=== PATIENT | female | born 1965 | race Caucasian/White ===

== ENCOUNTER 2019-08-18 09:01 | Observation (INO) | payer MEDICAID, SELFPAY ==
[2019-08-18] VITALS (12 sets, daily range): BP systolic 154–194; BP diastolic 81–99; PULSE 62–81; RESP 16–21; TEMP 36.4–37.4; O2SAT 100; BMI 27.5
--- NOTE | ~2019-08-18 | US_ITS ---
EXAMINATION: US carotid duplex BI DATE: 08/18/2019 17:24 INDICATION: Left hemiparesis. TECHNIQUE: Grayscale, color Doppler, and pulsed Doppler images of the cervical carotid arteries were obtained. The degree of vessel stenosis is placed in one of the following categories: normal, <50%, 5 0-69%, >=70% but less than near-occlusion, near-occlusion, or total occlusion. Note that percent sten osis relative to normal distal artery lumen diameter is indirectly measured from velocity measurement s as described by Ivan, et al. Radiology 2003; 229:340-346. COMPARISON: None. FINDINGS: RIGHT: The right common carotid artery (CCA) peak systolic velocity (PSV) is 78 cm/s. The right internal car otid artery (ICA) PSV is 67 cm/s. The right ICA end-diastolic velocity (EDV) is 27 cm/s. The right IC A/CCA PSV ratio is 0.9. Grayscale and color Doppler images yield an estimate of <50% diameter reducti on from plaque in the ICA. There is antegrade flow in the right vertebral artery. LEFT: The left CCA PSV is 91 cm/s. The left ICA PSV is 67 cm/s. The left ICA EDV is 14 cm/s. The left ICA/C CA PSV ratio is 0.7. Grayscale and color Doppler images yield an estimate of <50% diameter reduction from plaque in the ICA. There is antegrade flow in the left vertebral artery. IMPRESSION: 1. <50% stenosis in the right internal carotid artery. 2. <50% stenosis in the left internal carotid artery. Reviewed, dictated and finalized at location A.
--- NOTE | ~2019-08-18 | MR_ITS ---
EXAMINATION: MR brain/brain stem wo/w con DATE: 08/19/2019 10:43 INDICATION: Left-sided numbness and tingling. TECHNIQUE: Magnetic resonance imaging (MRI) of the brain and brainstem was performed without and with 15 mL MultiHance intravenous contrast. Sequences included sagittal and axial T1-weighted FSE, axial diffusion-weighted FS EPI, axial T2*-weighted GRE, axial T2-weighted FLAIR Propeller, and axial T2-we ighted Propeller. Postcontrast sequences included axial and coronal T1-weighted FSE. Apparent diffusi on coefficient (ADC) maps were created. COMPARISON: Head CT 08/18/2019 FINDINGS: There are scattered areas of nonspecific increased T2-weighted signal intensity in the cere bral white matter, which is within normal limits for the patient's age. There is no intracranial hemo rrhage, acute infarction, or abnormal intracranial mass lesion. The ventricles are normal in size. Th ere is mucosal thickening in the paranasal sinuses. The mastoid air cells are normal. The orbits are normal. IMPRESSION: 1. Normal aging brain. Reviewed, dictated and finalized at location A. IMPRESSION: 1. Normal aging brain.
--- NOTE | ~2019-08-18 | XR_ITS ---
XR chest 1V portable 08/18/2019 10:30 Indication: Suspected CVA. Left-sided numbness. Procedure: AP portable chest Comparison: 05/21/2006 Findings: Heart size normal. There is dextroscoliosis. No focal air space disease, pulmonary edema, p leural effusion or suspected pneumothorax. No acute osseous abnormality. Impression: 1: No acute cardiopulmonary disease. Reviewed, dictated and finalized at location A. Impression: 1: No acute cardiopulmonary disease.
--- NOTE | ~2019-08-18 | CT_ITS ---
EXAMINATION: CT brain wo con DATE: 08/18/2019 09:12 INDICATION: Left-sided tingling. TECHNIQUE: Computed tomography (CT) of the head was performed without intravenous contrast. The mA wa s adjusted according to patient size. Iterative reconstruction technique was employed. The dose-lengt h product was 605.33 mGy-cm. COMPARISON: None FINDINGS: There is no intracranial hemorrhage, acute infarction, or abnormal intracranial mass lesion . The ventricles are normal in size. There is mild mucosal thickening in the ethmoid sinuses. The mas toid air cells are normal. The orbits are normal. IMPRESSION: 1. Normal brain. I called this result to Dr. Palmer on 08/18/19 at 9:14 AM. Reviewed, dictated and finalized at location A.
--- NOTE | 2019-08-18 09:03 | ECG_ITS ---
Measurements Intervals [place] Rate: 72 P: 55 MN: 189 QRS: 18 QRSD: 95 T: 37 QT: 391 QTc: 430 Interpretive Statements SINUS RHYTHM EARLY PRECORDIAL R/S TRANSITION BASELINE ARTIFACT- I, II, III, AVR, AVL, AVF, V1-V6 BORDERLINE ECG Electronically Signed On 08-18-2019 9:28:11 CDT by Sal Carrillo D.O.
--- NOTE | 2019-08-18 09:04 | ED.NEUROSD ---
HPI - Neuro Symptoms/Deficit General Chief Complaint: Suspected CVA Stated Complaint: Tingling on L side Time Seen by Provider: 08/18/19 09:03 Source: patient Mode of arrival: ambulatory Limitations: no limitations History of Present Illness HPI Narrative: Pt is a 54 y/o female who presents to the ED with c/o lt hand and foot numbness/tingling that started this morning at 0730. Pt states that she was not able to sleep all night and she was awake when the Sx started. She notes that she got up to go to the bathroom and her gait was not steady. She states that she felt like her lt foot was going to give out and when she touched her lt foot it did not feel like it was her foot. Pt's numbness has subsided but she still has tingling to her lt hand and lt foot. She denies having a fever, or N/V. She got a liver transplant in 2016 and is in rejection. She gets her transplant care at [facility]. Onset (ago): hour(s) (1.5) Time: 07:30 Location: other (lt hand and lt foot) Quality: numb and tingling Relieving factors: time Context: sudden onset Associated symptoms: other (unsteady gait) Related Data Home Medications Medication Instructions Recorded Confirmed aspirin [Adult Low Dose Aspirin] 81 mg PO DAILY 08/18/19 08/18/19 lisinopril 10 mg PO DAILY 08/18/19 08/18/19 mycophenolate sodium 720 mg PO BID 08/18/19 08/18/19 prednisone 40 mg PO DAILY 08/18/19 08/18/19 sennosides [Senna Laxative] 8.6 mg PO HS 08/18/19 08/18/19 tacrolimus 2 mg PO BID 08/18/19 08/18/19 ursodiol 300 mg PO TID 08/18/19 08/18/19 Allergies Allergy/AdvReac Type Severity Reaction Status Date / Time latex Allergy Unknown Rash Verified 08/18/19 09:24 Penicillins Allergy Unknown Rash Verified 08/18/19 09:24 Review of Systems Review of Systems: All systems reviewed & are unremarkable except as noted in HPI and below Constitutional: Constitutional: Denies fever(s) Gastrointestinal: Gastrointestinal: Denies nausea and Denies vomiting Neurologic: Reports abnormal gait, Reports numbness (lt hand and lt foot) and Reports tingling (lt hand and lt foot) [facility] Past Medical History Medical History (Updated 08/18/19 @ 11:58 by Kurt Palmer DO) Anemia Anxiety DDD (degenerative disc disease) Fibroids GERD (gastroesophageal reflux disease) Liver transplant rejection Primary biliary cirrhosis Surgical History Surgical History (Updated 08/18/19 @ 09:35 by Lenny Walker) History of gastric bypass Hx of cholecystectomy Family History Family History (Updated 09/15/16 @ 23:56 by DOCTOR UNKNOWN) Sibling Patient's sister is in good health Mother Family history of elevated blood lipids Family history of diabetes mellitus in first degree relative Hypertension Father Family history of lung cancer, Onset Age: 54 Patient's father is Social History Social History Smoking status: Never smoker Second hand tobacco smoke exposure: No Alcohol intake: never Exam Narrative: Exam Narrative: APPEARANCE: No acute distress, nontoxic, resting in bed HEENT: Normocephalic, atraumatic, OMM, TMs clear bilaterally EYES: PERRL, EOMI NECK: Supple, nontender, full range of motion without pain, no meningismus RESPIRATORY: No respiratory distress, clear to auscultation bilaterally with no rhonchi wheezing or rales CARDIOVASCULAR: RRR s murmur ABDOMINAL: Soft, nontender, nondistended MUSCULOSKELETAL: Moves all extremities. No clubbing, cyanosis or edema. NEURO: A and O ?3, following commands, speech normal, cranial nerves II through XII grossly intact,muscle strength 5 out of 5 bilateral upper and lower extremities no pronator drift, pinprick sensation equal in the bilateral upper and lower extremities SKIN:: Warm, dry. Normal Color PSYCHIATRIC: Normal affect/mood Course Course Emergency Course: Patient reevaluated several times. States symptoms continuing to improve until ultimately symp
[2019-08-18 09:25] LABS: Basophils Percent Auto 0.6 % (0.2-1.2); Eosinophils Absolute Auto 0.1 K/mm3 (0-0.3); Eosinophils Percent Auto 1.2 % (0-4.4); Hematocrit 35.6 % (37.0-47.0); Hemoglobin 10.7 g/dL (12.0-15.0); Immature Granulocyte Absolute 0.02 K/mm3 (0.00-0.031); Immature Granulocyte Percent A 0.4 % (0-0.5); Immature Platelet Fraction Pct 8.2 % (0.9-11.2); Lymphocytes Absolute Auto 1.79 K/mm3 (0.9-3.2); Lymphocytes Percent Auto 34.7 % (18.3-44.2); Mean Corpuscular HGB Conc 30.1 g/dl (32-36); Mean Corpuscular Hemoglobin 20.6 pg (26-34); Mean Corpuscular Volume 68.5 fl (80-100); Monocytes Absolute Auto 0.5 K/mm3 (0.1-0.6); Monocytes Percent Auto 9.7 % (2.6-8.5); Neutrophils Absolute Auto 2.8 K/mm3 (1.3-6.7); Neutrophils Percent Auto 53.4 % (45.5-73.1); Platelet Count Result 175 k/mm3 (150-375); Red Cell Distribution Width 16.1 % (11.5-14.5); White Blood Count 5.2 K/mm3 (4.5-10.0)
[2019-08-18 09:32] LABS: INR 0.9
[2019-08-18 09:33] LABS: Partial Thromboplastin Time 28.4 SECONDS (22.3-36.8)
[2019-08-18 09:36] LABS: Blood Urea Nitrogen 10 mg/dL (7-17); Calcium 9.2 mg/dL (8.4-10.2); Carbon Dioxide 26 mmol/L (22-30); Chloride 104 mmol/L (98-107); Estimated CRCL calculation 20 ml/min; Estimated Glomerular Filt Rate > 60; Glucose 86 mg/dL (65-105); Potassium 3.6 mmol/L (3.4-5.0); Sodium 140 mmol/L (137-145)
[2019-08-18 09:48] LABS: Troponin I < 0.012 ng/mL (0.000-0.034)
[2019-08-18 10:34] LABS: Add Urine Microscopic? YES; Appearance Urine Clear (Clear); Bacteria Urine Trace /hpf; Bilirubin Urine Negative (Negative); Blood Urine Negative (Negative); Color Urine Yellow (Yellow); Glucose Urine UA Negative (Negative); Ketones Urine Negative (Negative); Leukocyte Esterase Ur 2+ LEU/UL (Negative); Mucus Urine Rare /lpf; Nitrate Urine Negative (Negative); Protein Urine Negative (Negative); RBC Urine 0-2 /hpf (0-2); Specific Grav Ur 1.011 (1.001-1.035); Squamous Epithelial Cell Urine Few /hpf (Few); Transitional Epi Cells Urine Rare /hpf (None Seen)
[2019-08-18 10:35] LABS: Ammonia < 9 umol/L (9-30)
--- NOTE | 2019-08-18 10:39 | PC.NURSE ---
all symptoms have resolved. bp 158/83 p 65
[2019-08-18] MEDS: ASPIRIN 81 MG CHEWABLE TABLET 324 MG PO (11:17)
--- NOTE | 2019-08-18 11:52 | ADMGEN ---
This patient, Oly Sanabria, was admitted to [facility] Room 303-01. Patient/family oriented to hospital policies and general routines including ID bracelet, bed and alarms, visiting hours, pain management, procedures, bathroom and other care routines, personal items, smoking policy, room service/diet, and visiting hours. Valuables list has been completed. Information on how to activate the Rapid Response Team has been discussed. Patient/Family are encouraged to report perceived risks to care and to ask questions if they do not understand what they are told or what they should do.
--- NOTE | 2019-08-18 13:20 | PM.IMHP ---
H&P: HPI History of Present Illness Chief complaint: Left-sided paresthesias. Narrative: Oly Sanabria is a very pleasant 54-year-old female with primary biliary cirrhosis status liver transplant January 2016, hypertension, GERD, sleep apnea no longer requiring treatment after significant weight loss, and chronic anemia who presented to the emergency department earlier this morning via private vehicle from home for evaluation of left-sided paresthesias. She slept poorly last night for reasons unclear to the patient. Not long after waking at 07:30, she developed paresthesias in the left arm from the elbow to the fingers and the left leg from knee to toes. She had a difficult time navigating to the bathroom ?because my foot did not feel like myself? and her leg did not seem to move in a fluid motion. She also reports that while taking her pills she had some mild dysphagia but was able to get them down without issue. That has never happened before. Additionally, she had blurry vision of the left eye ?almost like a curtain was going over it? but that was brief. She reported to the emergency department approximately 09:[address] brain CT which was normal. Her symptoms resolved by the time she was transferred up to her room on the floor and they have not returned. She has never had similar symptoms. She did not appreciate facial droop or dysarthria. She denies focal weakness. No palpitations or history of cardiac dysrhythmia. She believes her hypertension is fairly well controlled. No known history of dyslipidemia. No history of carpal or cubital tunnel syndrome. Because of her restless sleep, she does not think her paresthesias were related to position or compression. No history of peripheral neuropathy or vitamin B12 deficiency. Family history significant for vascular disease in her mother. Review of Systems Review of Systems: Narrative: Twelve systems were reviewed with pertinent positives and negatives as per HPI. She had cold symptoms couple of weeks ago which have resolved. No fever, chills, or sweats. No exertional chest pain or shortness of breath. She denies nausea, vomiting, and diarrhea. She denies dysuria, hematuria, urgency, hesitancy, and urinary frequency. She was started back on tacrolimus about 1 year ago due to concerns for rejection from her liver transplant, and tolerates her anti-rejection medications well. More recently she has had pruritus in her upper extremities, which she scratch to the point of having open wounds, but reports those had field. She still see some small white bumps at the rash site, however. No jaundice. No acholic stools. Except as documented, all other systems were reviewed and are negative. [facility] Past Medical History Medical History (Updated 08/18/19 @ 15:08 by Tanisha Cobian PA-C) Anxiety Chronic anemia DDD (degenerative disc disease) GERD (gastroesophageal reflux disease) Hypertension Liver transplant rejection Obstructive sleep apnea No longer on PAP therapy after significant weight loss from lap band surgery. Primary biliary cirrhosis Surgical History Surgical History (Updated 08/18/19 @ 14:44 by Tanisha Cobian PA-C) History of laparoscopic adjustable gastric banding Hx of cholecystectomy Status post liver transplant January 2016 at [facility] for primary biliary cirrhosis. Family History Family History (Updated 08/18/19 @ 14:38 by Tanisha Cobian PA-C) Sibling Patient's sister is in good health Rheumatoid arthritis with rheumatoid factor Fibromyalgia Mother Family history of elevated blood lipids Family history of diabetes mellitus in first degree relative Hx of CABG Hypertension Cerebrovascular accident Peripheral vascular disease Father Family history of lung cancer, Onset Age: 54 Patient's father is Social History Social History (Updated 08/18/19 @ 14:39 by Tanisha Cobian PA-C) Social History: The patient is
[2019-08-18 16:13] LABS: Alanine Aminotransferase 242 U/L (4-35); Albumin Level 3.7 g/dL (3.5-5.1); Alkaline Phosphatase 452 U/L (38-126); Aspartate Amino Transferase 214 U/L (14-36)
[2019-08-18 16:25] LABS: Troponin I < 0.012 ng/mL (0.000-0.034)
[2019-08-18 16:58] LABS: Iron 159 ug/dL (37-170)
[2019-08-18 17:07] LABS: Percent Iron Saturation 53 % (20-50)
[2019-08-18 17:24] LABS: Thyroid Stimulating Hormone Reflex 0.989 uIU/mL (0.465-4.68)
[2019-08-18] MEDS: ursodioL 300 MG CAPSULE PO (18:03)
[2019-08-18 19:17] LABS: Troponin I < 0.012 ng/mL (0.000-0.034)
[2019-08-18] MEDS: SENNOSIDES 8.6 MG TABLET PO (21:28)
[2019-08-19] VITALS (11 sets, daily range): BP systolic 117–173; BP diastolic 74–81; PULSE 68–90; RESP 16–18; TEMP 36.5–37.1; O2SAT 99–100
--- NOTE | 2019-08-19 06:00 | ECHO_ITS ---
Patient Info Name: Oly Sanabria Age: 54 years : 1965 Gender: Female Ht: 67 in Wt: 176 lbs BSA: 1.96 m2 HR: 82 bpm BP: 162 / 76 mmHg Heart Rhythm: Sinus Rhythm Technical Quality: Fair Exam Date: 08/19/2019 1:52 PM Exam Location: [facility] Patient Status: Inpatient Admit Date: 08/18/2019 Staff Ordering Physician: Kurt Palmer DO Data Reduction Technician: Darius Kasper RDCS Attending Provider: Errol Rubio PA-C Referring Physician: Estela EDMONDSON; Exam Type: CA echo doppler color flow Study Info Indications R29.5 - Transient paralysis Complete two-dimensional, color flow and Doppler transthoracic echocardiogram is performed. Strain analysis performed. History/Risk Factors Left sided parathesesis; HTN, anemia. Summary 1. Left ventricular chamber dimension is normal. 2. Left ventricular systolic function is normal, estimated at 60-65%. 3. There is mildly increased left ventricular wall thickness. 4. The left ventricular diastolic function is grade I diastolic dysfunction. 5. E/e' 6 is not elevated. 6. Global longitudinal strain is normal at -19.2%. 7. There is mild aortic valve sclerosis. 8. There is mild aortic valve stenosis based on a peak velocity of 201 cm/s, mean gradient of 7 mmHg, and aortic valve area of 1.5 cm2. 9. The mitral valve has moderately calcified annulus. Left Ventricle E/e' 6 is not elevated. Global longitudinal strain is normal at -19.2%. Left ventricular chamber dimension is normal. Left ventricular systolic function is normal, estimated at 60-65%. There is mildly increased left ventricular wall thickness. The left ventricular diastolic function is grade I diastolic dysfunction. Right Ventricle Right ventricular chamber dimension is normal. Right ventricular systolic function is normal. Left Atria Left atrial chamber dimension is normal. Right Atria Right atrial chamber dimension is normal. Aortic Valve There is mild aortic valve stenosis based on a peak velocity of 201 cm/s, mean gradient of 7 mmHg, and aortic valve area of 1.5 cm2. The aortic valve is not well visualized. There is mild aortic valve sclerosis. There is no aortic valve regurgitation. Pulmonic Valve The pulmonic valve is not well visualized. Mitral Valve The mitral valve has moderately calcified annulus. There is no mitral valve stenosis. There is no mitral valve regurgitation. Tricuspid Valve There is no tricuspid valve regurgitation. Pericardium/Pleural There is no pericardial effusion. Inferior Vena Cava Normal inferior vena cava with >50% collapse upon inspiration consistent with normal right atrial pressure, 5 mmHg. Aorta The aortic root size at the sinus of Valsalva is not well visualized. Left Ventricular Outflow Tract Name Value Normal LVOT 2D LVOT Diameter 1.8 cm LVOT Doppler LVOT Peak Gradient 4 mmHg LVOT Mean Gradient 2 mmHg LVOT VTI 19 cm LVOT VTI/AV VTI Ratio 0.6 LVOT Stroke Volume 50 ml
[2019-08-19 06:24] LABS: Basophils Percent Auto 0.6 % (0.2-1.2); Eosinophils Absolute Auto 0.1 K/mm3 (0-0.3); Eosinophils Percent Auto 1.4 % (0-4.4); Hematocrit 34.9 % (37.0-47.0); Hemoglobin 10.5 g/dL (12.0-15.0); Immature Granulocyte Absolute 0.02 K/mm3 (0.00-0.031); Immature Granulocyte Percent A 0.4 % (0-0.5); Lymphocytes Absolute Auto 1.95 K/mm3 (0.9-3.2); Lymphocytes Percent Auto 38.5 % (18.3-44.2); Mean Corpuscular HGB Conc 30.1 g/dl (32-36); Mean Corpuscular Hemoglobin 20.8 pg (26-34); Mean Corpuscular Volume 69.1 fl (80-100); Monocytes Absolute Auto 0.5 K/mm3 (0.1-0.6); Monocytes Percent Auto 8.9 % (2.6-8.5); Neutrophils Absolute Auto 2.5 K/mm3 (1.3-6.7); Neutrophils Percent Auto 50.2 % (45.5-73.1); Platelet Count Result 174 k/mm3 (150-375); Red Blood Count 5.05 M/mm3 (4.2-5.4); White Blood Count 5.1 K/mm3 (4.5-10.0)
[2019-08-19 06:36] LABS: Blood Urea Nitrogen 14 mg/dL (7-17); Calcium 8.7 mg/dL (8.4-10.2); Carbon Dioxide 26 mmol/L (22-30); Chloride 106 mmol/L (98-107); Estimated CRCL calculation 77 ml/min; Estimated Glomerular Filt Rate > 60; Glucose 90 mg/dL (65-105); Sodium 139 mmol/L (137-145)
[2019-08-19 08:04] LABS: Cholesterol 259 mg/dL (0-200); HDL Direct 68 mg/dL; Triglycerides 65 mg/dL (<150)
[2019-08-19 08:15] LABS: LDL Cholesterol Direct 150 mg/dL
[2019-08-19] MEDS: ursodioL 300 MG CAPSULE PO ×2 (08:44→12:54)
[2019-08-19] MEDS: ASPIRIN 81 MG ENTERIC TABLET PO (08:44)
[2019-08-19] MEDS: predniSONE 20 MG TABLET 40 MG PO (08:45)
[2019-08-19] MEDS: lisinopriL 10 MG TABLET PO (08:46)
[2019-08-19 09:10] LABS: Folic Acid 5.4 ng/mL (2.76->20)
[2019-08-19] MEDS: ALPRAZOLAM 0.25 MG TABLET PO (09:37)
--- NOTE | 2019-08-19 13:42 | CONS_ITS ---
DATE OF CONSULTATION: HISTORY: This 54 years old right-handed female has been admitted to [facility] through the emergency room for the complaints of left-sided paresthesia. Reportedly, she slept poorly last night for reasons unclear to the patient not long after waking at 7:30 a.m., she developed paresthesia in the left upper extremity from the elbow down to her fingers and left lower extremity from knee down to her toes. She had difficulties in navigating to the bathroom because her foot did not feel well and her leg did not seem to move in a proper motion. She reported that while taking her pills, she has some dysphagia, but was able to get them down without issue that has never happened before. She had blurred vision of the left eye almost like a curtain going over it, but that was brief. She reported to the emergency room department approximately 9:00 a.m., and subsequently had a CT scan of the brain, which was reportedly normal. By that time she was transferred to the floor upstairs, she had symptomatology that has completely resolved. She had no associated facial droop, dysarthria, or focal weakness. She does have ongoing history of 1. Primary biliary cirrhosis for which she has undergone liver transplant in 2016. 2. Hypertension. 3. GERD. 4. Sleep apnea, though she is not taking any treatment at this particular time because she has lost significant weight. 5. Anemia. 6. Restless legs. 7. Restless sleep. PAST HISTORY: Her past history is consistent with 1. Anxiety. 2. Chronic anemia. 3. Degenerative disk disease. 4. GERD. 5. Hypertension. 6. Liver transplant rejection. 7. Obstructive sleep apnea, though she is no longer on PAP therapy after significant loss from the lap band surgery. 8. Primary biliary cirrhosis. PAST SURGICAL HISTORY: She has undergone laparoscopic adjustable gastric banding, cholecystectomy, and hepatic transplant. SOCIAL HISTORY: She is a lady, lives in her own home. She has 2 grown sons. 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 She is a lifelong nonsmoker. She drinks about 2 alcoholic beverages a week. MEDICATIONS: At the time of admission to the hospital, she was taking 1. Aspirin 81 mg daily. 2. Lisinopril 10 mg daily. 3. Mycophenolate 720 mg twice a day. 4. Prednisone 40 mg daily. 5. Sennosides 8.6 mg at bedtime. 6. Tacrolimus 2 mg twice a day. 7. Ursodiol 300 mg t.i.d. ALLERGIES: SHE IS ALLERGIC TO LATEX AND PENICILLIN. PHYSICAL EXAMINATION: VITAL SIGNS: Evaluation up until now revealed her to be afebrile with blood pressure of 194/99, pulse ox 100%. GENERAL: Examination revealed her to be awake, alert, and cooperative, in no obvious acute distress. HEENT: Head normocephalic with no cranial bruit. Ear, nose, throat examination normal. NECK: Supple with no cervical bruit. No thyromegaly. No lymphadenopathy. HEART: Regular. LUNGS: Clear. ABDOMEN: With no organomegaly. NEUROLOGICALLY: Awake, alert, oriented x3. Speech not dysphasic, not dysarthric, not dysphonic. Pupils round, regular. Mistry of vision full. Extraocular movements full. Face symmetrical. Tongue midline. Motor examination revealed no drift of 1 side or other side. Reflexes symmetrical. Plantar downgoing. Tone is normal as well. LABORATORY DATA: Evaluation up until now include CBC with no leukocytosis. Hemoglobin 10.7, platelet 175, normal basic metabolic panel with BUN of 10. Troponin less than 0.012. UA negative. CT scan of brain done in the emergency room was negative and so as the chest x-ray. She is being evaluated for the TIA versus the stroke. The patient will have the MRI and further recommendations made accordingly.
--- NOTE | 2019-08-19 14:42 | PM.DS ---
DS: Diagnosis Admitting Diagnosis Admitting Diagnosis: Paresthesia of skin Discharge Diagnosis (1) Paresthesias: Code(s): R20.2 - Paresthesia of skin Status: Acute Assessment and Plan: Patient developed paresthesias of the left upper and lower extremities prior to arrival; these have resolved. Patient noted her leg briefly gave out this morning, but this was brief and her strength quickly returned. Brain MRI negative for stroke; caroitd doppler unremarkable. Echo showed normal EF, grade I diastolic dysfucntion, mild aortic valve stenosis among other findings. Vit B12 and Folate WNL. Cholesterol 259 today. Suspicious for TIA; risk factors include hypertension. Blood pressure of 194/99 on arrival to the emergency department. BP has improved to 140s sys today; will have her follow up with PCP about further BP management Follow up with PCP for possible event monitor. Tele showed vent bigeminy and occasional pvcs, but otherwise sinus rhythm; no other ectopy noted; patient has been asymptomatic today Follow up with Dr. Portillo as outpatient for further EMG and nerve conduction studies (2) Hypertension: Code(s): I10 - Essential (primary) hypertension Status: Acute Assessment and Plan: Blood pressures were reviewed and they are not controlled earlier in visit. BP 140s sys this afternoon; improved Will have patient follow up with PCP for further management of BP medications (3) Status post liver transplant: Code(s): Z94.4 - Liver transplant status Status: Acute Assessment and Plan: Liver transplant January 2016 for primary biliary sclerosis.Back on tacrolimus approximately 1 year ago due to rejection. Continue anti-rejection medications. (4) Chronic anemia: Code(s): D64.9 - Anemia, unspecified Status: Acute Assessment and Plan: Hemoglobin and hematocrit are stable on review of previous labs. MCV is low; iron studies unremarkable. Follow up with PCP as outpatient (5) Pyuria: Code(s): R82.81 - Pyuria Status: Acute Assessment and Plan: No symptoms to suggest urinary tract infection again today. No indication for antibiotics at this time. UC still pending although likely would not start abx at this time due to her being asymptomatic. She is immunocompromised and should she develop fever she will need to be started on antibiotics Recommended follow up with PCP should she begin to develop symptoms. DS: Summary Hospital Course Reason for hospitalization: Left sided paresthesias; r/o stroke Hospital Course: Patient is a 54 yo female with primary biliary cirrhosis status liver transplant January 2016, hypertension, GERD, sleep apnea no longer requiring treatment after significant weight loss, and chronic anemia who presented to the emergency department earlier on 08/17 via private vehicle from home for evaluation of left-sided paresthesias. Patient woke up at 7:30 am and developed paresthesias left arm from elbow to fingers and left leg from her knees to her toes. She also experienced blurry vision in her left eye almost like a curtain was going over it . CT of the head in the ED was unremarkable. Please see H&P for further details Presenting VS: BP 194/99, HR 70, RR 16, temp 97.5, sat 100% RA Presenting Pertinent labs: H&H 10.7/35.6, MCV 68.5, iron 159, TIBC 300, ferritin 95.1, tbili 2.0, AST 214, ALT 242, alk phos 452, trop negative x 3, cholesterol 259, triglycerides 65, LDL 150, HDL 68, vit b12 498, folate 5.4, TSH 0.989. UA showed clear yellow urine, 4.0 urobilinogen, 2+ leuk est, WBC 10-15. CBC, coags, CMP, UA otherwise unremarkable Micro: UC showed no growth Imagin/[address] IMPRESSION: 1. Normal brain. I called this result to Dr. Palmer on 08/18/19 at 9
--- NOTE | 2019-08-19 15:15 | PC.NURSE ---
Spoke with Dr. Portillo and verified this patient was okay to discharge. Follow up with Dr. Portillo in 6-8 weeks.
--- NOTE | 2019-08-19 20:04 | PC.NURSE ---
Patient left @1730 by wheel chair and POV. IV line removed, patient had no new scripts going home, belongings list and discharge packet verified.
== END 2019-08-19 17:30 | disposition home or self-care (01) ==
LOC: ANHED 11:04 → ANH3MEDSUR 11:28
PROVIDERS: Physician Assistant; Admitting Provider Internal Medicine; Emergency Provider Emergency Medicine; PCP Internal Medicine; Visit Provider Family Medicine
DX: R20.2 Paresthesia of skin (principal); I10 Essential (primary) hypertension; I35.0 Nonrheumatic aortic (valve) stenosis; T86.41 Liver transplant rejection; K74.3 Primary biliary cirrhosis; D64.9 Anemia, unspecified; R82.81 Pyuria; G25.81 Restless legs syndrome; K21.9 Gastro-esophageal reflux disease without esophagitis; Z79.52 Long term (current) use of systemic steroids; Z79.82 Long term (current) use of aspirin; Z79.899 Other long term (current) drug therapy; Z88.0 Allergy status to penicillin; Z91.040 Latex allergy status; Z98.84 Bariatric surgery status
CPT/HCPCS: 36415; 70450; 70553; 71045; 80048; 80061; 80076; 81001; 81025; 82140; 82607; 82728; 82746; 83540; 83550; 84443; 84484; 85025; 85055; 85610; 85730; 87086; 87088; 92610; 93005; 93306; 93880; 96374; 99285; A9270; A9577; G0378; G0379; J0696; J7512

== ENCOUNTER 2021-11-19 00:23 | Emergency (ER) | payer BC, SELFPAY ==
[2021-11-19 00:24] VITALS: BP 195/87; PULSE 68; RESP 20; TEMP 36.5; O2SAT 100
--- NOTE | 2021-11-19 00:48 | ED.SKABFB ---
HPI - Skin/Abscess/Foreign Bdy General Chief complaint: Skin/Abscess/Foreign Body Stated complaint: Bug bite to head Time Seen by Provider: 11/19/21 00:29 History of Present Illness HPI narrative: 56-year-old female presented to the emergency room after scratching the back of her head due to a bug bite. Patient states that she noticed blood on her finger following scratching the back of her head. Related Data Home Medications Medication Instructions Recorded Confirmed aspirin 81 mg tablet,delayed 81 mg PO DAILY 08/18/19 03/29/21 release (Adult Low Dose Aspirin) mycophenolate sodium 360 mg 720 mg PO BID 08/18/19 03/29/21 tablet,delayed release tacrolimus 1 mg capsule, 2 mg PO BID 08/18/19 03/29/21 immediate-release ursodiol 300 mg capsule 300 mg PO TID 08/18/19 03/29/21 Allergies Allergy/AdvReac Type Severity Reaction Status Date / Time latex Allergy Mild Rash Verified 03/29/21 15:25 Penicillins Allergy Mild Rash Verified 03/29/21 15:25 Review of Systems Review of Systems: CONSTITUTIONAL: Denies fever, chills, or sweats. EYES: Denies visual changes, redness, or discharge. ENT: Denies rhinorrhea, congestion, sore throat, or otalgia. CARDIOVASCULAR: Denies chest pain, palpitations, or edema. RESPIRATORY: Denies cough or dyspnea. GASTROINTESTINAL: Denies abdominal pain, nausea, vomiting, or diarrhea. GENITOURINARY: Denies dysuria or hematuria. SKIN: Denies rash or itching. MUSCULOSKELETAL: Denies back pain, joint pain, or myalgia. NEUROLOGIC: Denies headache, numbness, dizziness, or weakness. PSYCHIATRIC: Denies anxiety or depression. [facility] Past Medical History Medical History (Updated 11/19/21 @ 00:52 by Master Gonzalez APRN) Anxiety Chronic anemia DDD (degenerative disc disease) GERD (gastroesophageal reflux disease) Hypertension Liver transplant rejection Obstructive sleep apnea No longer on PAP therapy after significant weight loss from lap band surgery. Primary biliary cirrhosis Surgical History Surgical History History of laparoscopic adjustable gastric banding Hx of cholecystectomy Status post liver transplant January 2016 at [place] for primary biliary cirrhosis. Family History Family History Sibling Patient's sister is in good health Rheumatoid arthritis with rheumatoid factor Fibromyalgia Mother Family history of elevated blood lipids Family history of diabetes mellitus in first degree relative Hx of CABG Hypertension Cerebrovascular accident Peripheral vascular disease Father Family history of lung cancer, Onset Age: 54 Patient's father is Social History Social History Social History: The patient is . She lives in her own home in [place], [place]. She has 2 grown sons. 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 She is a lifelong nonsmoker. She drinks about 2 alcoholic beverages a week. Occasional marijuana use. sibling Salome Landry designated as her emergency contact. She wishes to be a full code. Smoking status: Never smoker Second hand tobacco smoke exposure: No Alcohol intake: never Substance use: never Spiritual care concerns: No Agree to blood products: Yes Exam Narrative: GENERAL: Well-appearing, well-nourished, and in no acute distress. HEAD: Normocephalic, atraumatic. Small abrasion to the posterior scalp surrounding dried blood; it changed. No evidence of insects or other infestation EYES: PERRLA and EOMI. CHEST: Clear to auscultation. No respiratory distress. No wheezes rales or rhonchi HEART: Regular rate and rhythm. No murmur heard. Normal peripheral pulses. ABDOMEN: Soft, nontender, nondistended, normal active bowel sounds. EXTREMITIES: Normal range of motion. No edema. SKIN: Warm, dry, no rash. NEURO: No focal deficits. Alert an
[2021-11-19 01:28] VITALS: BP 172/96; PULSE 87; RESP 17; O2SAT 98
== END 2021-11-19 01:16 | disposition home or self-care (01) ==
PROVIDERS: Emergency Provider Nurse Practitioner Family; PCP Internal Medicine
DX: S00.01XA Abrasion of scalp, initial encounter (principal); S00.06XA Insect bite (nonvenomous) of scalp, initial encounter; I10 Essential (primary) hypertension; W57.XXXA Bitten or stung by nonvenomous insect and other nonvenomous arthropods, initial encounter
CPT/HCPCS: 99281

== ENCOUNTER 2024-01-01 14:44 | Emergency (ER) | payer OTHER, SELFPAY ==
[2024-01-01 14:46] VITALS: BP 167/90; PULSE 90; RESP 20; TEMP 36.4; O2SAT 100
--- NOTE | 2024-01-01 17:05 | ED.EYEPROB ---
HPI - Eye Problem General Chief complaint: Eye Problems Stated complaint: bilat eye irritation Time Seen by Provider: 01/01/24 15:39 Source: patient Mode of arrival: ambulatory Limitations: no limitations History of Present Illness HPI Narrative: This is a 58-year-old female with PMH of PBC, HTN who presents to the ED for chief complaint of bilateral eye irritation beginning 3 days ago. Reports that her eyes are frequently irritated due to autoimmune problems sensitivity however this morning she woke up with the eyes matted shut. Reports yellowish crust. states that she went to the horse race and feels like some dirt flew into her eye. denies vision change, seeing halos, fevers, chills, any further injury. Related Data Home Medications Medication Instructions Recorded Confirmed aspirin 81 mg tablet,delayed 81 mg PO DAILY 08/18/19 03/29/21 release (Adult Low Dose Aspirin) mycophenolate sodium 360 mg 720 mg PO BID 08/18/19 03/29/21 tablet,delayed release tacrolimus 1 mg capsule, 2 mg PO BID 08/18/19 03/29/21 immediate-release ursodiol 300 mg capsule 300 mg PO TID 08/18/19 03/29/21 Allergies Allergy/AdvReac Type Severity Reaction Status Date / Time latex Allergy Mild Rash Verified 01/01/24 14:51 Penicillins Allergy Mild Rash Verified 01/01/24 14:51 Review of Systems Review of Systems: All systems as dictated in HPI PENDING SALE TO [facility] Past Medical History Medical History (Updated 01/01/24 @ 17:08 by Filiberto Tineo PA-C) Anxiety Chronic anemia DDD (degenerative disc disease) GERD (gastroesophageal reflux disease) Hypertension Liver transplant rejection Obstructive sleep apnea No longer on PAP therapy after significant weight loss from lap band surgery. Primary biliary cirrhosis Surgical History Surgical History History of laparoscopic adjustable gastric banding Hx of cholecystectomy Status post liver transplant January 2016 at [place] for primary biliary cirrhosis. Family History Family History Sibling Patient's sister is in good health Rheumatoid arthritis with rheumatoid factor Fibromyalgia Mother Family history of elevated blood lipids Family history of diabetes mellitus in first degree relative Hx of CABG Hypertension Cerebrovascular accident Peripheral vascular disease Father Family history of lung cancer, Onset Age: 54 Patient's father is Social History Social History Social History: The patient is . She lives in her own home in [place], [place]. She has 2 grown sons. 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 She is a lifelong nonsmoker. She drinks about 2 alcoholic beverages a week. Occasional marijuana use. sibling Salome Landry designated as her emergency contact. She wishes to be a full code. Smoking status: Never smoker Second hand tobacco smoke exposure: No Alcohol intake: never Substance use: never Spiritual care concerns: No Agree to blood products: Yes Exam Narrative: GENERAL: Well-appearing, well-nourished, and in no acute distress. HEAD: Normocephalic, atraumatic. EYES: PERRLA and EOMI. Bilateral conjunctival injection. There is scant amount of drainage noted to the left eye. Pain improved with tetracaine. Wood's lamp exam reveals no foreign bodies. Small corneal abrasion noted to the left eye. No corneal abrasion on the right. Negative Yan sign bilaterally ENT: Nares clear, no rhinorrhea or epistaxis. Mucous membranes moist. Oropharynx without tonsillar hypertrophy exudate or other lesions. NECK: Supple. No adenopathy or masses. CHEST: No respiratory distress. Clear to auscultation. No wheezes rales or rhonchi HEART: Regular rate and rhythm. No murmur heard. Normal peripheral pulses. ABDOMEN: Soft, nontender, nondistended,
[2024-01-01 17:21] VITALS: BP 137/72; PULSE 78; RESP 18; TEMP 36.6; O2SAT 99
== END 2024-01-01 17:23 | disposition home or self-care (01) ==
PROVIDERS: Emergency Provider Physician Assistant; PCP Family Medicine
DX: H10.9 Unspecified conjunctivitis (principal); I10 Essential (primary) hypertension; D64.9 Anemia, unspecified; K21.9 Gastro-esophageal reflux disease without esophagitis; K74.3 Primary biliary cirrhosis; G47.33 Obstructive sleep apnea (adult) (pediatric); Z90.49 Acquired absence of other specified parts of digestive tract; Z79.82 Long term (current) use of aspirin; Z79.899 Other long term (current) drug therapy
CPT/HCPCS: 99283